=== PATIENT | female | born 1990 | race Caucasian/White ===

== ENCOUNTER 2018-04-19 21:12 | Emergency (ER) | payer BC, OTHER ==
[~2018-04-19 21:12] MED LIST: ADDERALL20 MG PO; AMPHETAMINE SAL20 MG PO; CELEXA20 MG PO; FLOMAX0.4 MG PO; MOTRIN600 MG PO; NORCO 7.5/321 TABLET PO; PROMETHAZINE HC25 M1 PO; PROTONIX20 MG PO; SINGULAIR10 MG PO; TOPAMAX50 MG PO
[2018-04-19 21:39] LABS: AMYLASE 51 IU/L (1-118)
[2018-04-19 21:47] LABS: LIPASE 47 U/L (1.0-51.0)
[2018-04-19] MEDS ORDERED: KEFLEX500 MG PO (23:59)
[2018-04-19] MEDS ORDERED: DIFLUCAN150 MG PO (23:59)
[2018-04-19] MEDS ORDERED: ROXICODONE5 MG PO (23:59)
== END 2018-04-20 00:52 | disposition home or self-care (01) ==
LOC: TRA 21:12
PROC: 0HQ1XZZ Repair Face Skin, External Approach (ICD-10-PCS; principal; 2018-04-19)
DX: S01.81XA Laceration without foreign body of other part of head, initial encounter (principal); S02.82XA Fracture of other specified skull and facial bones, left side, initial encounter for closed fracture; W55.12XA Struck by horse, initial encounter; V80.010A Animal-rider injured by fall from or being thrown from horse in noncollision accident, initial encounter; Y93.52 Activity, horseback riding
CPT/HCPCS: 70450; 70486; 71260; 72125; 72129; 72132; 74177; 82150; 83690; 99281; 99284; J2270

== ENCOUNTER 2018-05-01 14:32 | Emergency (ER) | payer BC, OTHER ==
[~2018-05-01] VITALS: Ht 172.7 cm; Wt 95.6 kg
[~2018-05-01 14:32] MED LIST changes: +DIFLUCAN150 MG PO; +KEFLEX500 MG PO; +ROXICODONE5 MG PO
[2018-05-01 16:00] LABS: HEMATOCRIT 38.2 % (36.0-46.0); MCH 29.7 PG (29.0-34.0); MCV 87.2 FL (83-99); PLATELET COUNT 209 K/uL (156-360); RBC DIS.WIDTH-CV 12.2 % (11.8-14.6); RBC DIS.WIDTH-SD 39.1 % (39-53); RED BLOOD COUNT 4.38 M/uL (3.80-5.20); WHITE BLOOD COUNT 5.8 K/uL (4.1-10.2)
[2018-05-01 16:09] LABS: ALBUMIN 4.2 g/dL (3.2-4.8)
[2018-05-01 16:10] LABS: CHLORIDE 109 mEq/L (99-109); POTASSIUM 4.1 mEq/L (3.7-5.4); SODIUM 140 mEq/L (136-147)
[2018-05-01 16:12] LABS: GLUCOSE 92 mg/dL (70-99); TOTAL PROTEIN 6.9 g/dL (6.4-8.3)
[2018-05-01 16:14] LABS: TOTAL BILIRUBIN 0.2 mg/dL (0.0-1.0)
[2018-05-01 16:15] LABS: ALKALINE PHOSPHATASE 61 IU/L (3-129)
[2018-05-01 16:16] LABS: CREATININE 0.9 mg/dL (0.6-1.3); GFR ESTIMATE (CALCULATED) > 59 mL/min/
[2018-05-01 16:17] LABS: AST (GOT) 12 IU/L (2-34); UREA NITROGEN (BUN) 16 mg/dL (9-23)
[2018-05-01 16:19] LABS: ALT (GPT) 7 IU/L (3-49)
[2018-05-01 16:25] LABS: QUANTITATIVE HCG < 4.0 MIU/ML
[2018-05-01 16:54] LABS: LIPASE 48 U/L (1.0-51.0)
[2018-05-01 18:46] LABS: APPEARANCE SL.HAZY ((CLEAR)); BILIRUBIN NEGATIVE; BLOOD SMALL; COLOR YELLOW ((YELLOW)); GLUCOSE (STRIP) NEGATIVE; KETONES NEGATIVE; LEUKOCYTES TRACE; NITRITE NEGATIVE; PROTEIN (STRIP) NEGATIVE; UROBILINOGEN 0.2 MG/DL (0.2-1.0)
[2018-05-01] MEDS ORDERED: MACROBID100 MG PO (18:55)
[2018-05-01 19:05] LABS: RED BLOOD CELLS 0-5 /HPF (0-5)
[2018-05-01 19:06] LABS: EPITHELIAL CELLS 1+ /HPF
[2018-05-01 19:07] LABS: AMORPHOUS PHOSPHATE CRYSTALS 2+; BACTERIA 2+ /HPF; MUCUS RARE /LPF
[2018-05-01 19:20] VITALS: BP 135/87
== END 2018-05-01 19:21 | disposition home or self-care (01) ==
LOC: EME 14:32
PROVIDERS: Nurse Practitioner Family
DX: N39.0 Urinary tract infection, site not specified (principal); R10.9 Unspecified abdominal pain; Z86.718 Personal history of other venous thrombosis and embolism; J45.909 Unspecified asthma, uncomplicated; F41.9 Anxiety disorder, unspecified; Z88.2 Allergy status to sulfonamides; Z88.0 Allergy status to penicillin; Z86.69 Personal history of other diseases of the nervous system and sense organs; Z88.1 Allergy status to other antibiotic agents
CPT/HCPCS: 71260; 74177; 80053; 81003; 83690; 84702; 85027; 99281; 99285; J7030